=== PATIENT | male | born 1935 | race Caucasian/White ===

== ENCOUNTER 2017-03-10 15:15 | Inpatient (IN) ==
[2017-03-10] MEDS ORDERED: ACETAMINOPHEN 325 MG TABLET PO PRN (15:26)
[2017-03-10] MEDS ORDERED: NALOXONE 0.4 MG/ML VIAL IV PRN (15:26)
[2017-03-10] MEDS ORDERED: ONDANSETRON 4 MG/2 ML VIAL IV PRN (15:26)
[2017-03-10] MEDS ORDERED: SODIUM CHLORIDE 0.9% 250 ML IV PRN (15:34)
--- NOTE | 2017-03-10 16:20 | CT Report ---
CT chest PE study Indication: Acute dyspnea with hypertension. Lung cancer. CT CHEST WITH CONTRAST, PE PROTOCOL DLP: 324 mGy*cm. One or more of the following dose reduction techniques was used: Automated exposure control, adjustment of the mA and/or kV according the patient size, or use of iterative reconstruction techniques. Comparison: 03/06/2017 Technique: Axial CT images of the chest were obtained during the pulmonary arterial phase of contrast injection. Coronal reconstructions were provided. Omnipaque 350, 80 cc. Findings: No pulmonary artery filling defects to the segmental level. Main pulmonary artery is normal in size. Heart size is normal. Pectus excavatum again shown. Shotty mediastinal lymphadenopathy is unchanged from 4 days ago. Pulmonary emphysema, pleural parenchymal scarring of the pulmonary apices, and a oval-shaped dominant mass the left upper lobe measuring 48 x 22 mm are unchanged from 4 days ago. No new lesions shown. No pneumothorax or pleural fluid. Upper abdomen appears grossly benign. Impression: No evidence pulmonary embolus. No change from 4 days ago. PROCEDURE INTERPRETED AT [facility] DEPARTMENT OF RADIOLOGY Final Report Signed by: Jake Tran M.D.
[2017-03-10 16:37] LABS: Basophils % 0.7 % (0.0-0.8); Eosinophils # 0.3 10*3/uL (0.0-0.87); Eosinophils % 5.2 % (0.00-10.9); Hematocrit 31.5 VOL% (42.0-52.0); Hemoglobin 9.5 GM/DL (14.0-18.0); Immature Granulocytes % 0.2 %; Immature Granulocytes Absolute 0.01 #; Lymphocytes # 0.9 10*3/uL (1.4-4.0); Lymphocytes % 15.3 % (21.2-54.2); Mean Corpuscular HGB Conc 30.2 GM/DL (32-36); Mean Corpuscular Hemoglobin 24 PG (27-34); Mean Corpuscular Volume 78.9 FL (87-102); Mean Platelet Volume 10.9 FL (9.6-12.0); Monocytes # 0.5 10*3/uL (0.11-0.8); Monocytes % 8.1 % (1.7-12.7); Neutrophils # 4.1 10*3/uL (1.4-7.4); Neutrophils % 70.5 % (38.7-73.9); Platelet Count 215 T/CUMM (130-400); Red Blood Count 3.99 MC/CUMM (3.8-5.5); Red Cell Distribution Width 19.2 % (9.3-17.3); White Blood Count 5.8 T/CUMM (4-12)
[2017-03-10 16:51] LABS: PT Patient Result 10.8 SECS; Partial Thromboplastin Time 23.1 SECS (0-40)
[2017-03-10] MEDS: SODIUM CHLORIDE 0.9% 1,000 ML IV SCH (16:58)
[2017-03-10 17:00] LABS: Alanine Aminotransferase 18 U/L (16-61); Albumin 3.5 G/DL (3.4-5.0); Alkaline Phosphatase 54 U/L (45-117); Aspartate Amino Transferase 10 U/L (0-37); Bilirubin,Total < 0.39 MG/DL (0.2-1.0); Blood Urea Nitrogen 19 MG/DL (7-18); Calcium 8.3 MG/DL (8.5-10.1); Glucose 89 MG/DL (74-106); Osmolality,Calculated 277.5 MOS/KG (273-304); Potassium 4.4 MMOL/L (3.5-5.1); Sodium 139 MMOL/L (136-145); Total Protein 6.3 G/DL (6.4-8.3)
[2017-03-10 17:01] LABS: Troponin I Only < 0.015 NG/ML (0.00-0.045)
[2017-03-10 19:43] LABS: Troponin I Only < 0.015 NG/ML (0.00-0.045)
[2017-03-10 20:46] LABS: Apearance,Urine CLEAR (Clear); Bilirubin,Urine Negative (Negative); Blood, Urine Negative (Negative); Glucose,Urine (UA) Negative (Negative); Ketones,Urine Negative (Negative); Nitrite,Urine Negative (Negative); Protein,Urine Negative; Renal Epithelial Cells,Urine Occasional /HPF (<1); Urine Color Straw (Yellow); Urine Specific Gravity 1.031 (1.001-1.035); Urine Urobilinogen < 2.0 EU/DL (0.2-1.0); WBC,Urine <1 /HPF (0-6)
[2017-03-10] MEDS: DOCUSATE SODIUM 100 MG CAPSULE PO SCH (22:31)
[2017-03-11] MEDS: SODIUM CHLORIDE 0.9% 1,000 ML IV SCH ×4 (00:35→18:20)
[2017-03-11] MEDS: PANTOPRAZOLE 40 MG VIAL IV SCH ×3 (00:54→22:13)
[2017-03-11 01:47] LABS: Troponin I Only < 0.015 NG/ML (0.00-0.045)
[2017-03-11 05:32] LABS: Hematocrit 36.8 VOL% (42.0-52.0); Hemoglobin 11.7 GM/DL (14.0-18.0)
--- NOTE | 2017-03-11 07:48 | Family Practice History&Phys ---
Assessment and Plan (1) Hypotension Status: Acute Assessment and plan: 03/11/2017: Patient certainly improved with IV fluids. No evidence of PE on CT chest Current Visit: Yes (2) History of melena Status: Acute Assessment and plan: 03/11/2017: GI has been consulted. Current Visit: Yes History of Present Illness Chief complaint: Severe weakness and hypotension History of present illness: Mr. Elam is a 81 year old male Patient's 81-year-old white male has lung cancer and had recent GI bleed. Patient received blood recently. Patient presented to the office complaining of increasing weakness and hypotension. Patient was fearful that he might pass out and had a great deal of difficulty with activities of daily living. Patient is followed by Dr. Hernandez for his lung cancer. Patient also has history of recent DVT and his Xarelto was held due to intraocular hemorrhage and GI bleed. Patient was understandably anxious about his profound weakness and I admitted him. CT scan of the chest was performed on admission was revealed no evidence of PE. Home Medications Medication Instructions Recorded Confirmed Type Aspirin [Ecotrin] 81 mg PO DAILY 05/29/16 03/10/17 History Atorvastatin [Lipitor] 20 mg PO BEDTIME 05/29/16 03/10/17 History Esomeprazole Magnesium [Nexium] 40 mg PO BID 05/29/16 03/10/17 History Tamsulosin [Flomax] 0.4 mg PO DAILY 06/02/16 03/10/17 History Calcium Carbonate Chew [Tums] 4 tablet PO Q4H PRN 09/03/16 03/10/17 History Mv-Min/FA/Vit K/Lycop/Lut/Zeax 1 each PO DAILY 09/03/16 03/10/17 History [Ocuvite Eye + Multi Tablet] Ondansetron HCl 8 mg PO Q6H 09/03/16 03/10/17 History Sennosides/Docusate Sodium 1 each PO DAILY 09/03/16 03/10/17 History [Rosetta-Colace Tablet] Oxycodone HCl/Acetaminophen 1 each PO Q6HR PRN #100 tablet 09/04/16 03/10/17 Rx [Percocet 10-325 mg Tablet] Polyethylene Glycol Powder 17 gm PO DAILY 09/04/16 03/10/17 History [Miralax] Rivaroxaban [Xarelto] 20 mg PO DAILY W/BREAKFAST 03/10/17 03/10/17 History fentaNYL 25 MCG/HR PATCH 1 patch TRANSDERM Q3DAY 03/10/17 03/10/17 History [Duragesic 25 Patch] Allergies Allergy/AdvReac Type Severity Reaction Status Date / Time meperidine [From Demerol] Allergy RASH Verified 09/03/16 09:06 Oxycodone [From Tylox] Allergy RASH Verified 09/03/16 09:06 - Constitutional Constitutional: Present: fatigue, lethargy, malaise, weakness - EENT Eyes: Absent: blurry vision, loss of vision Ears: Absent: decreased hearing, ear pain Nose, mouth and throat: Absent: nasal congestion, sinus pressure, sore throat - Cardiovascular Cardiovascular: Present: dyspnea on exertion. Absent: dyspnea, orthopnea, palpitations, PND - Respiratory Respiratory: Present: dyspnea on exertion. Absent: cough, wheezing - Gastrointestinal Gastrointestinal: Present: melena. Absent: abdominal pain, diarrhea, hematemesis, hematochezia, nausea, vomiting - Genitourinary Genitourinary: Absent: dysuria, urinary frequency, urinary incontinence - Musculoskeletal Musculoskeletal: Absent: arthralgias, back pain - Neurological Neurological: Absent: abnormal gait, focal weakness, numbness, paresthesias - Psychiatric Psychiatric: Absent: confusion, depression - Endocrine Endocrine: Present: fatigue. Absent: polydipsia, polyphagia - Hematologic/Lymphatic Hematologic/Lymphatic: Absent: easy bleeding, easy bruising Medical,Surgical,& Family Hx - Medical History Cardio: History of: Hypertension HEENT: History of: Eye Problem (MACULAR DEGENERATION) Endocrine: History of: Dyslipidemia Respiratory: History of: Lung Cancer, Respiratory Problems (lung ca stage 4) Genitourinary: History of: Prostate Problems (prostate ca) Gastrointestinal: History of: GERD, GI Problems (2/3 stomch removed ulcer ruptured) Musculoskeletal: History of: Herniated Disk, Musculoskeletal Problems (ca mest to t4) Other: History of: Cancer (STAGE IV LUNG, MULTIPLE SKIN CANCERS) - Surgical History Abdominal Surgeries: Surgical HX of: Abdominal Surgery, Hernia Repair - Family History Family History: Reports;: Family Cancer, Family Heart Disease, Family Hypertension - Social History Smoking Status: Former smoker Frequency of Alcohol Use: None Type of Drug Use: None Exam - Constitutional Vitals: Period Temp Pulse Resp BP Sys/Nicole Pulse Ox Last 24 Hr 97.2 F-98.6 F 63-72 18-20 122-173/61-89 96-100 Exam: General: Objective patient is a well-developed white male in no acute distress. He is able to give good history. HEENT: Pupils equal and reactive to light. Patent nares and airway Neck: No meningismus, adenopathy, thyromegaly. There are no auscultated carotid bruits. Cardiovascular: Regular rhythm. No murmurs or gallops Chest: Clear to auscultation without rales rhonchi wheezes. Abdomen: Soft nontender to palpation No masses, rebound, guarding or tenderness. Neuro: Cranial nerves intact and DTRs and strength symmetric in all extremities. Dermatologic: No evidence of abnormal lesions or masses. Musculoskeletal: There is no joint swelling or tenderness or deformity. Results - Labs CBC & BMP: 03/11/17 05:15 03/10/17 16:29 Lab Results: I have reviewed the past 24 hour labs
--- NOTE | 2017-03-11 08:15 | Oncology Consult Note ---
Assessment and Plan (1) Lung cancer Status: Acute Assessment and plan: I agree with upper endoscopy today to evaluate for the source of his recent likely upper GI bleed. Given his hemorrhagic retinal issues and his recent GI bleed, I feel like we should continue holding all anticoagulation including aspirin. I will repeat ultrasound of his left lower extremity today to reevaluate his previously known DVT. I do not see a real benefit in placing an IVC filter. I will check back in with him tomorrow. Current Visit: No (2) DVT (deep venous thrombosis) Status: Acute Current Visit: Yes (3) History of melena Status: Acute Current Visit: Yes History of Present Illness History of present illness: Mr. Elam is a 81 year old male with metastatic lung cancer who is being treated with Keytruda for palliative management who recently developed an upper GI bleed last week and required 2 units of blood. His melena resolved within 2 days and we are trying to get him set up to see GI for an upper scope. He presented to his primary care's office yesterday complaining of worsening fatigue and shortness of breath. He was admitted for further evaluation. CT PE protocol yesterday showed stable lung and bony findings from a cancer standpoint. Did not show any pulmonary emboli. He was transfused 2 more units of blood yesterday and this morning his hemoglobin is over 11. He states he feels much better today. GI seeing him and plans to do an upper endoscopy later today. We discontinued Xarelto 2 months ago that we were using to treat a lower extremity DVT in the left leg. He was developing hemorrhagic findings in his left retina that we thought was secondary to the Xarelto. His recent imaging showed stable findings from a cancer standpoint but his prognosis is still measured in months. Home Medications Medication Instructions Recorded Confirmed Type Aspirin [Ecotrin] 81 mg PO DAILY 05/29/16 03/10/17 History Atorvastatin [Lipitor] 20 mg PO BEDTIME 05/29/16 03/10/17 History Esomeprazole Magnesium [Nexium] 40 mg PO BID 05/29/16 03/10/17 History Tamsulosin [Flomax] 0.4 mg PO DAILY 06/02/16 03/10/17 History Calcium Carbonate Chew [Tums] 4 tablet PO Q4H PRN 09/03/16 03/10/17 History Mv-Min/FA/Vit K/Lycop/Lut/Zeax 1 each PO DAILY 09/03/16 03/10/17 History [Ocuvite Eye + Multi Tablet] Ondansetron HCl 8 mg PO Q6H 09/03/16 03/10/17 History Sennosides/Docusate Sodium 1 each PO DAILY 09/03/16 03/10/17 History [Rosetta-Colace Tablet] Oxycodone HCl/Acetaminophen 1 each PO Q6HR PRN #100 tablet 09/04/16 03/10/17 Rx [Percocet 10-325 mg Tablet] Polyethylene Glycol Powder 17 gm PO DAILY 09/04/16 03/10/17 History [Miralax] Rivaroxaban [Xarelto] 20 mg PO DAILY W/BREAKFAST 03/10/17 03/10/17 History fentaNYL 25 MCG/HR PATCH 1 patch TRANSDERM Q3DAY 03/10/17 03/10/17 History [Duragesic 25 Patch] Allergies Allergy/AdvReac Type Severity Reaction Status Date / Time meperidine [From Demerol] Allergy RASH Verified 09/03/16 09:06 Oxycodone [From Tylox] Allergy RASH Verified 09/03/16 09:06 Medical,Surgical,& Family Hx - Medical History Cardio: History of: Hypertension HEENT: History of: Eye Problem (MACULAR DEGENERATION) Endocrine: History of: Dyslipidemia Respiratory: History of: Lung Cancer, Respiratory Problems (lung ca stage 4) Genitourinary: History of: Prostate Problems (prostate ca) Gastrointestinal: History of: GERD, GI Problems (2/3 stomch removed ulcer ruptured) Musculoskeletal: History of: Herniated Disk, Musculoskeletal Problems (ca mest to t4) Other: History of: Cancer (STAGE IV LUNG, MULTIPLE SKIN CANCERS) - Surgical History Abdominal Surgeries: Surgical HX of: Abdominal Surgery, Hernia Repair - Family History Family History: Reports;: Family Cancer, Family Heart Disease, Family Hypertension - Social History Smoking Status: Former smoker Frequency of Alcohol Use: None Type of Drug Use: None 12 point system: reviewed and no additional remarkable complaints except as stated - Constitutional Constitutional: Present: fatigue - EENT Nose, mouth and throat: Present: dizziness Exam - Constitutional Vitals: Period Temp Pulse Resp BP Sys/Nicole Pulse Ox Last 24 Hr 97.2 F-98.6 F 63-72 18-20 122-173/61-89 95-100 General appearance: normal weight, no acute distress - Head Head Exam: Present: normocephalic, atraumatic - Eye Eye Exam: Present: EOMI Pupils: Present: PERRL - ENT ENT exam: Present: normal exam, normal oropharynx - Neck Neck exam: Absent: lymphadenopathy, thyromegaly - Respiratory Respiratory exam: Present: CTAB. Absent: wheezes - Cardiovascular Cardiovascular exam: Present: RRR. Absent: JVD, systolic murmur - GI/Abdominal GI/Abdominal exam: Present: soft. Absent: ascites, distended, mass - Neurological Exam Neurological exam: Present: alert, oriented X3 - Psychiatric Psychiatric exam: Present: normal affect, normal mood - Skin Skin exam: Present: warm, dry Results - Labs CBC & BMP: 03/11/17 05:15 03/10/17 16:29 Lab Results: I have reviewed the past 24 hour labs - Diagnostic Findings Procedure: CT - chest: report reviewed by me
[2017-03-11] MEDS: DOCUSATE SODIUM 100 MG CAPSULE PO SCH ×2 (08:30→22:13)
[2017-03-11] MEDS: TAMSULOSIN 0.4 MG CAPSULE PO SCH (08:30)
--- NOTE | 2017-03-11 09:19 | Ultrasound Report ---
US venous doppler LE LT Indication: Known DVT in left lower extremity. Comparison: Left lower extremity venous Doppler dated January 28, 2017. Technique: Grayscale, spectral, and color Doppler interrogation of the left lower extremity veins was performed. Augmentation and compression was performed. Findings: Grayscale, color Doppler, and pulsed Doppler evaluation of the veins of the left lower extremity demonstrates redemonstration of nonocclusive thrombus within the left popliteal vein. This is similar in appearance to comparison study. IMPRESSION: As above. PROCEDURE INTERPRETED AT [facility] DEPARTMENT OF RADIOLOGY Final Report Signed by: Dr Antonio Burt
[2017-03-11 09:35] LABS: Hematocrit 36.4 VOL% (42.0-52.0); Hemoglobin 11.6 GM/DL (14.0-18.0)
--- NOTE | 2017-03-11 11:02 | Gastrointestinal Consult Note ---
<Mee Curiel - Last Filed: 03/11/17 10:51> Assessment and Plan (1) Melena Status: Acute Assessment and plan: 03/11-2 week history of melena, anemia with mild epigastric pain. 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 No NSAID use. Pallative chemotherapy for metastatic lung cancer. Plan for EGD today to further evaluate. Plan and addendum to follow by DR Wiseman. Current Visit: Yes History of Present Illness Chief complaint: Melena, weakness History of present illness: Mr. Elam is a 81 year old male who presented to the hospital with onset of weakness and hypotension. Pt is a fair historian however is at bedside and assist in history taking. Pt states he has not felt well the last several days with increased fatigue and weakness. Statse that he presented to his PCP for further evaluation and was direct admitted to the hospital for further workup. He has a history of metastatic lung cancer for pallative management and is being treated with Keytruda by Dr Hernandez. He had onset of melena approximately two weeks ago and received 2 units of PRBC in clinic and set up for EGD as outpatient later this week with Dr Wiseman. Pt states that the melena returned this week and the weakness/fatigue increased as well. He has been on Xarelto in the past for DVT however this was stopped two months ago due to intraoccular bleed. He states that he has a history of PUD in the past with perforation requiring surgery in the 1949s and then returned in 1976 to have partial gastrectomy with Billroth II anatomy noted in facility records. Pt states he has not had reoccurrence of ulcers since this time. He does complain of some mild dysphagia to pills at times. Denies any nausea or vomiting. He states he has noted some mild epigastric discomfort with meals as of recent. On admission , his hemoglobin was noted at 9.5 and received two more units of PRBC, with hgb now at 11.7. He has had his most recent endoscopy done at [facility] by Dr Wiseman, however unable to access these records. Last known endoscopy here noted with Dr Cerna in 2008 with findings of esophagitis. Home Medications Medication Instructions Recorded Confirmed Type Aspirin [Ecotrin] 81 mg PO DAILY 05/29/16 03/10/17 History Atorvastatin [Lipitor] 20 mg PO BEDTIME 05/29/16 03/10/17 History Esomeprazole Magnesium [Nexium] 40 mg PO BID 05/29/16 03/10/17 History Tamsulosin [Flomax] 0.4 mg PO DAILY 06/02/16 03/10/17 History Calcium Carbonate Chew [Tums] 4 tablet PO Q4H PRN 09/03/16 03/10/17 History Mv-Min/FA/Vit K/Lycop/Lut/Zeax 1 each PO DAILY 09/03/16 03/10/17 History [Ocuvite Eye + Multi Tablet] Ondansetron HCl 8 mg PO Q6H 09/03/16 03/10/17 History Sennosides/Docusate Sodium 1 each PO DAILY 09/03/16 03/10/17 History [Rosetta-Colace Tablet] Oxycodone HCl/Acetaminophen 1 each PO Q6HR PRN #100 tablet 09/04/16 03/10/17 Rx [Percocet 10-325 mg Tablet] Polyethylene Glycol Powder 17 gm PO DAILY 09/04/16 03/10/17 History [Miralax] Rivaroxaban [Xarelto] 20 mg PO DAILY W/BREAKFAST 03/10/17 03/10/17 History fentaNYL 25 MCG/HR PATCH 1 patch TRANSDERM Q3DAY 03/10/17 03/10/17 History [Duragesic 25 Patch] Allergies Allergy/AdvReac Type Severity Reaction Status Date / Time meperidine [From Demerol] Allergy RASH Verified 09/03/16 09:06 Oxycodone [From Tylox] Allergy RASH Verified 09/03/16 09:06 Medical,Surgical,& Family Hx - Medical History Cardio: History of: Hypertension HEENT: History of: Eye Problem (MACULAR DEGENERATION) Endocrine: History of: Dyslipidemia Respiratory: History of: Lung Cancer, Respiratory Problems (lung ca stage 4) Genitourinary: History of: Prostate Problems (prostate ca) Gastrointestinal: History of: GERD, GI Problems (2/3 stomch removed ulcer ruptured) Musculoskeletal: History of: Herniated Disk, Musculoskeletal Problems (ca mest to t4) Other: History of: Cancer (STAGE IV LUNG, MULTIPLE SKIN CANCERS) - Surgical History Abdominal Surgeries: Surgical HX of: Abdominal Surgery, Hernia Repair - Family History Family History: Reports;: Family Cancer, Family Heart Disease, Family Hypertension - Social History Smoking Status: Former smoker Frequency of Alcohol Use: None Type of Drug Use: None 12 point system: reviewed and no additional remarkable complaints except as stated - Constitutional Constitutional: Present: as per HPI, fatigue, weakness - EENT Eyes: Present: as per HPI Ears: Present: as per HPI Nose, mouth and throat: Present: as per HPI - Cardiovascular Cardiovascular: Present: as per HPI - Respiratory Respiratory: Present: as per HPI - Gastrointestinal Gastrointestinal: Present: as per HPI, melena - Genitourinary Genitourinary: Present: as per HPI - Musculoskeletal Musculoskeletal: Present: as per HPI - Neurological Neurological: Present: as per HPI - Psychiatric Psychiatric: Present: as per HPI - Endocrine Endocrine: Present: as per HPI - Hematologic/Lymphatic Hematologic/Lymphatic: Present: as per HPI Exam - Constitutional Vitals: Period Temp Pulse Resp BP Sys/Nicole Pulse Ox Last 24 Hr 97.2 F-98.6 F 63-72 18-20 122-173/61-89 95-100 General appearance: normal weight, no acute distress - Head Head exam: Present: normal inspection, normocephalic - Eye Eye exam: Present: other (lids and conjunctiva unremarkable). Absent: scleral icterus - ENT ENT exam: Present: normal exam, normal oropharynx - Neck Neck exam: Present: normal inspection - Respiratory Respiratory exam: Present: clear to auscultation bilaterally. Absent: rales, rhonchi, wheezes - Cardiovascular Cardiovascular exam: Present: regular rate and rhythm. Absent: diastolic murmur , JVD, systolic murmur - GI/Abdominal GI/Abdominal exam: Present: normal bowel sounds, soft. Absent: ascites, distended, mass, organomegaly, tenderness - Extremities Exam Extremities exam: Present: normal inspection, full ROM - Back Exam Back exam: Present: normal inspection - Neurological Exam Neurological exam: Present: alert, oriented X3 - Psychiatric Psychiatric exam: Present: normal affect, normal mood - Skin Skin exam: Present: normal color, warm, dry Results - Labs CBC & BMP: 03/11/17 09:29 03/10/17 16:29 Lab Results: I have reviewed the past 24 hour labs <Alfred Wiseman - Last Filed: 03/11/17 11:41> History of Present Illness History of present illness: Mr. Elam is a 81 year old male Exam - Constitutional Vitals: Period Temp Pulse Resp BP Sys/Nicole Pulse Ox Last 24 Hr 97.2 F-98.6 F 61-72 18-20 122-173/61-89 95-100 Results - Labs CBC & BMP: 03/11/17 09:29 03/10/17 16:29
--- NOTE | 2017-03-11 11:46 | Operative Note ---
Date of procedure: 03/11/17 Pre-op diagnosis: Melena with possible GI bleed Procedure: EGD 81-year-old gentleman admitted with melena decreasing hematocrit prior. Peptic ulcer disease history with epigastric pain now for EGD to further evaluate. Informed consent was obtained the patient He was sedated with MAC anesthesia per anesthesia protocol. Patient was placed in the left lateral decubitus position the Olympus flexible video upper endoscope was inserted into the oral cavity under direct vision the esophagus was intubated. Findings: Esophagus-normal proximal mid esophageal mucosa distal esophagus with small hiatal hernia no significant esophagitis stricture or Mccurdy's or varices were seen. Stomach-normal insufflation large amount of bubbles and retained secretions but no bloodstained mucosa or blood is seen. He has had a previous partial gastrectomy with intact gastrojejunal anastomosis with what appears to be a Raza -en-Y limb. There are significant secretions limiting visibility. Again no bloodstained mucosa or active bleeding is noted for approximately 30 cm into the jejunum. No AVMs were seen. The procedure terminated placed our procedure well his discharge recovery in good condition. Postop diagnosis 1. Status post partial gastrectomy with no evidence of gastric outlet obstruction no obvious source of blood loss identified 2. Gastroesophageal reflux disease-continue antireflux precautions and antacids as needed. 3. Continue to monitor H&H. If bleeding episodes persist consideration of GI bleeding scan may prove useful for localization purposes. Anesthesia: MAC Surgeon / Physician: Alfred Wiseman Estimated blood loss: none Specimens: none sent Condition: stable Disposition: post procedure unit Results - Labs CBC & BMP: 03/11/17 09:29 03/10/17 16:29 Discharge Plan - Discharge Medications No Action Esomeprazole Magnesium [Nexium] 40 mg PO BID Atorvastatin [Lipitor] 20 mg PO BEDTIME Aspirin [Ecotrin] 81 mg PO DAILY Tamsulosin [Flomax] 0.4 mg PO DAILY Calcium Carbonate Chew [Tums] 4 tablet PO Q4H PRN PRN Reason: Heartburn Oxycodone HCl/Acetaminophen [Percocet 10-325 mg Tablet] 1 each PO Q6HR PRN # 100 tablet PRN Reason: Pain Polyethylene Glycol Powder [Miralax] 17 gm PO DAILY Sennosides/Docusate Sodium [Rosetta-Colace Tablet] 1 each PO DAILY Mv-Min/FA/Vit K/Lycop/Lut/Zeax [Ocuvite Eye + Multi Tablet] 1 each PO DAILY Ondansetron HCl 8 mg PO Q6H Rivaroxaban [Xarelto] 20 mg PO DAILY W/BREAKFAST fentaNYL 25 MCG/HR PATCH [Duragesic 25 Patch] 1 patch TRANSDERM Q3DAY - Follow Up or Referral - Forms/Instructions
--- NOTE | 2017-03-11 11:48 | Anesthesia Post-Op ---
Anesthesia Post OP - Post Ansesthetic Evaluation Patient seen in post op: Yes Resp: within normal limits CV: within normal limits Mental: within normal limits Temp: within normal limits [id number]: within normal limits Nausea and Vomiting: within normal limits Pain: within normal limits
[2017-03-11] MEDS ORDERED: PROPOFOL 200 MG/20 ML VIAL IV ONE (12:00)
[2017-03-11] MEDS ORDERED: ONDANSETRON 4 MG/2 ML VIAL ONE (12:00)
[2017-03-11] MEDS: oxyCODONE/ACETAMINOPHEN 5-325 MG TABLET PO PRN (12:35)
[2017-03-11] MEDS: POLYETHYLENE GLYCOL POWDER 17 GM PACK PO SCH (13:59)
[2017-03-12] MEDS: SODIUM CHLORIDE 0.9% 1,000 ML IV SCH ×2 (07:30→17:10)
--- NOTE | 2017-03-12 07:57 | Family Practice Progress Note ---
Family Practice - PN: Subj Interval history: Patient had a good night has not had any further bleeding. His EGD showed no evidence of source of his bleeding. Dr. Wiesman suggested to him having a bleeding scan of his bleeding returns obviously that is not present at this time. Seen with Dr. Hernandez yesterday who recommended no further anticoagulation. Patient still anxious about his DVT which is still present. Exam (Progress Note) - Constitutional Vitals: Period Temp Pulse Resp BP Sys/Nicole Pulse Ox Last 24 Hr 97.1 F-98.5 F 60-74 10-20 101-161/66-051 95-100 Exam: Objectively well-developed white male no acute distress. His color is good and his hematocrit is 36% this morning. Is not confused and is able answer all questions appropriately. Cardiovascular: Heart rates regular without murmurs or gallops. Respiratory: Lungs clear to auscultation bilaterally. Abdomen: Abdomen soft and nontender to palpation. Results - Labs CBC & BMP: 03/11/17 09:29 03/10/17 16:29 Lab Results: I have reviewed the past 24 hour labs Assessment and Plan (1) Hypotension Status: Acute Assessment and plan: 03/11/2017: Patient certainly improved with IV fluids. No evidence of PE on CT chest 03/12/2017: No evidence of PE on the CT chest. Patient's blood pressure is improved with IV fluids. Current Visit: Yes (2) History of melena Status: Acute Assessment and plan: 03/11/2017: GI has been consulted. 03/12/2017: Patient had a negative EGD. His stool was negative for blood. Current Visit: Yes (3) DVT (deep venous thrombosis) Status: Acute Assessment and plan: 03/12/2017: Anticoagulation was not recommended at this time. Current Visit: Yes
[2017-03-12] MEDS: DOCUSATE SODIUM 100 MG CAPSULE PO SCH ×2 (09:22→20:41)
[2017-03-12] MEDS: TAMSULOSIN 0.4 MG CAPSULE PO SCH (09:22)
[2017-03-12] MEDS: POLYETHYLENE GLYCOL POWDER 17 GM PACK PO SCH (09:23)
[2017-03-12] MEDS: PANTOPRAZOLE 40 MG VIAL IV SCH ×2 (09:23→20:41)
--- NOTE | 2017-03-12 10:34 | Gastrointestinal Progress Note ---
<Mee Curiel - Last Filed: 03/12/17 10:31> Assessment and Plan (1) Melena Status: Acute Assessment and plan: 03/12-no reports of overt bleeding. Hemoglobin stable 11.6. With no repeat labs today. EGD findings and yesterday noted. Anticoagulation continues to be held. LLE ultrasound findings noted. Plan an addendum to follow by Dr. Wiseman. 03/11-2 week history of melena, anemia with mild epigastric pain. 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 No NSAID use. Pallative chemotherapy for metastatic lung cancer. Plan for EGD today to further evaluate. Plan and addendum to follow by DR Wiseman. Current Visit: Yes Gastroenterology - PN: Subj Interval history: CC: Melena Patient is seen awake alert sitting up in chair, at bedside. States he had an uneventful night. Patient's is concerned because he is having continued fatigue and low energy levels. His hemoglobin was checked and is holding stable at 11.6 following his 2 units of packed red blood cells on yesterday. Denies any abdominal pain, nausea or vomiting. EGD on yesterday without any acute findings including no gastric outlet obstruction however findings of GERD. He had a bowel movement on yesterday with no overt bleeding reported. Dr. العراقي is following patient at this time and is noted to recommend to continue to hold his anticoagulation at this time. Patient had repeat Doppler of his left lower extremity with findings of nonocclusive thrombus in the left popliteal vein. Patient is very anxious about his anticoagulant being held due to this finding. Abdomen soft, nontender. ROS: Denies shortness of breath or chest pain Exam (Progress Note) - Constitutional Vitals: Period Temp Pulse Resp BP Sys/Nicole Pulse Ox Last 24 Hr 97.1 F-98.5 F 60-74 10-18 101-161/66-051 96-100 General appearance: normal weight, no acute distress - Head Head exam: Present: normal inspection, normocephalic - Eye Eye exam: Present: other (Lids and conjunctivae unremarkable). Absent: scleral icterus - ENT ENT exam: Present: normal exam, normal oropharynx - Neck Neck exam: Present: normal inspection - Respiratory Respiratory exam: Present: clear to auscultation bilaterally. Absent: rales, rhonchi, wheezes - Cardiovascular Cardiovascular exam: Present: regular rate and rhythm. Absent: diastolic murmur , JVD, systolic murmur - GI/Abdominal GI/Abdominal exam: Present: normal bowel sounds, soft. Absent: ascites, distended, mass, organomegaly, tenderness - Extremities Exam Extremities exam: Present: normal inspection, full ROM - Back Exam Back exam: Present: normal inspection - Neurological Exam Neurological exam: Present: alert, oriented X3 - Psychiatric Psychiatric exam: Present: normal affect, normal mood - Skin Skin exam: Present: normal color, warm, dry Results - Labs CBC & BMP: 03/11/17 09:29 03/10/17 16:29 Lab Results: I have reviewed the past 24 hour labs <Alfred Wiseman - Last Filed: 03/12/17 17:19> Exam (Progress Note) - Constitutional Vitals: Period Temp Pulse Resp BP Sys/Nicole Pulse Ox Last 24 Hr 97.1 F-98.5 F 60-64 16-18 132-147/71-86 95-99 Results - Labs CBC & BMP: 03/12/17 10:51 03/10/17 16:29
[2017-03-12 11:29] LABS: Hematocrit 38.5 VOL% (42.0-52.0); Hemoglobin 12.2 GM/DL (14.0-18.0)
[2017-03-12] MEDS: oxyCODONE/ACETAMINOPHEN 5-325 MG TABLET PO PRN ×2 (13:18→20:41)
[2017-03-13] MEDS: SODIUM CHLORIDE 0.9% 1,000 ML IV SCH ×2 (01:15→09:14)
[2017-03-13 05:51] LABS: Basophils # 0.1 10*3/uL (0.0-0.2); Basophils % 0.9 % (0.0-0.8); Eosinophils # 0.3 10*3/uL (0.0-0.87); Eosinophils % 5.4 % (0.00-10.9); Hematocrit 35.5 VOL% (42.0-52.0); Hemoglobin 11.2 GM/DL (14.0-18.0); Immature Granulocytes % 0.4 %; Immature Granulocytes Absolute 0.02 #; Lymphocytes # 0.7 10*3/uL (1.4-4.0); Lymphocytes % 13.9 % (21.2-54.2); Mean Corpuscular HGB Conc 31.5 GM/DL (32-36); Mean Corpuscular Hemoglobin 25 PG (27-34); Mean Corpuscular Volume 79.6 FL (87-102); Mean Platelet Volume 10.8 FL (9.6-12.0); Monocytes # 0.5 10*3/uL (0.11-0.8); Monocytes % 9.8 % (1.7-12.7); Neutrophils # 3.7 10*3/uL (1.4-7.4); Neutrophils % 69.6 % (38.7-73.9); Platelet Count 184 T/CUMM (130-400); Red Blood Count 4.46 MC/CUMM (3.8-5.5); Red Cell Distribution Width 18.6 % (9.3-17.3); White Blood Count 5.3 T/CUMM (4-12)
[2017-03-13 06:11] LABS: Osmolality,Calculated 284.1 MOS/KG (273-304); Potassium 4.2 MMOL/L (3.5-5.1)
--- NOTE | 2017-03-13 07:49 | Discharge Summary ---
Hospital Course - Hospital Course Hospital Course: Patient 81-year-old white male presented the office on day of admission with increasing weakness and hypotension. Patient did have a recent history of GI bleed requiring transfusion. Patient also has a history of lung CA and has been on chemotherapy. A month ago was diagnosed with DVT and placed on Xarelto. He developed retinal hemorrhage in his left eye as well as previously mentioned GI bleed. Patient seen in consultation by Dr. Hernandez who did not think he was a candidate for any further anticoagulation at this point. Repeat venous Doppler showed organized clot in his left popliteal vein. Patient denies any chest pain or shortness of breath. A CT of the chest had been performed that showed no evidence of DVT. Patient had no further bleeding while hospitalized and had a upper endoscopy that revealed no evidence of a bleeding site. Patient's hematocrit remained stable while hospitalized will be discharged home today. Diagnosis - Discharge Diagnosis (1) Hypotension Status: Acute (2) History of melena Status: Acute (3) DVT (deep venous thrombosis) Status: Acute Discharge Plan - Discharge Data Disposition: Disch To Home/Self Care Condition at Discharge: Stable Discharge Diet: advance to your usual diet Activity: resume usual activities as tolerated Hygiene: no restrictions Weight Bearing at Discharge: full weight bearing Driving: no restrictions Contact your physician if you experience:: fever over 101 - Discharge Medications New Acetaminophen Tab [Tylenol Tab] 650 mg PO Q6H PRN tablet PRN Reason: Fever > 100.4 Or Headache Continue Esomeprazole Magnesium [Nexium] 40 mg PO BID Tamsulosin [Flomax] 0.4 mg PO DAILY Calcium Carbonate Chew [Tums] 4 tablet PO Q4H PRN PRN Reason: Heartburn Oxycodone HCl/Acetaminophen [Percocet 10-325 mg Tablet] 1 each PO Q6HR PRN # 100 tablet PRN Reason: Pain Polyethylene Glycol Powder [Miralax] 17 gm PO DAILY Sennosides/Docusate Sodium [Rosetta-Colace Tablet] 1 each PO DAILY Mv-Min/FA/Vit K/Lycop/Lut/Zeax [Ocuvite Eye + Multi Tablet] 1 each PO DAILY Ondansetron HCl 8 mg PO Q6H fentaNYL 25 MCG/HR PATCH [Duragesic 25 Patch] 1 patch TRANSDERM Q3DAY Discontinued Atorvastatin [Lipitor] 20 mg PO BEDTIME Aspirin [Ecotrin] 81 mg PO DAILY Rivaroxaban [Xarelto] 20 mg PO DAILY W/BREAKFAST - Follow Up or Referral Follow Up: Alphonse Will MD [Physician] - 1 Month - Forms/Instructions Exam - Constitutional Vitals: Period Temp Pulse Resp BP Sys/Nicole Pulse Ox Last 24 Hr 97.8 F-98.1 F 61-67 16-18 123-155/70-73 92-98 Exam: Objectively well-developed white male no acute distress. His color is good and his hematocrit is 35% this morning. Is not confused and is able answer all questions appropriately. He states he feels up to going home. Cardiovascular: Heart rates regular without murmurs or gallops. Respiratory: Lungs clear to auscultation bilaterally. Abdomen: Abdomen soft and nontender to palpation. Discharge Results Procedures and tests throughout hospitalization: Pending Orders 03/10/17 15:33 Occult Blood, Stool Stat Labs on day of discharge: Labs from last 24 hours 03/13/17 03/13/17 03/12/17 05:31 05:31 10:51 WBC 5.3 RBC 4.46 Hgb 11.2 L 12.2 L Hct 35.5 L 38.5 L MCV 79.6 L MCH 25 L MCHC 31.5 L RDW 18.6 H Plt Count 184 MPV 10.8 Neut % (Auto) 69.6 Lymph % (Auto) 13.9 L Liberty % (Auto) 9.8 Eos % (Auto) 5.4 Baso % (Auto) 0.9 H Neut # (Auto) 3.7 Lymph # (Auto) 0.7 L Liberty # (Auto) 0.5 Eos # (Auto) 0.3 Baso # (Auto) 0.1 Immature Gran % 0.4 Nucleated RBC % 0.0 Immature Gran # 0.02 Nucleated RBCs # 0.00 Sodium 142 Potassium 4.2 Chloride 111 H Carbon Dioxide 24 Anion Gap 11.2 BUN 17 Creatinine 0.70 GFR Calculation 104 BUN/Creatinine Ratio 24.00 H Glucose 104 Calculated Osmolality 284.1 Calcium 8.0 L Hematocrit is stable. DS: Provider Date of admission: 03/12/17 15:24 Primary care physician: Tyrel Hernandez MD Attending physician on admission: Alphonse Will MD Consults: 03/10/17 15:26 Consult to Case Mgmt/Social Srvs [CONS] Routine Reason for Case Mgmt/Social Srvs: Discharge Planning Consult to Physician [CONS] Routine Comment: Consulting Provider: Alfred Wiseman Consult Notification Comment: TEXTED TO AYANA AT 7:25 03/10/17 15:31 Consult to Physician [CONS] Routine Comment: Consulting Provider: Tyrel Hernandez Person Notified: REJI Date Notified: 03/11/17 Time Notified: 09:10 Discharging clinician: Alphonse Will MD Expected date of discharge: 03/13/17
[2017-03-13 08:07] VITALS: BP 147/82
--- NOTE | 2017-03-13 08:42 | Physician Query Form ---
CLICK EDIT DOCUMENT TO SELECT QUERY ANSWER --> OK --> SIGN Joyce Albert RN, CCDS Certified Clinical Subassembler W) [phone] (f) [phone] [email or web address]: Make your selection(s) from the choices in EACH section by typing an "x" and enter comments in the comment section. Please use your independent medical judgment in providing your response. This request does not imply that any particular answer is desired or expected. CLINICAL INDICATORS: (Providers should not edit this section) The medical record indicates that the patient was admitted for anemia, recently "diagnosed with DVT and placed on Xarelto", "he developed retinal hemorrhage in his left eye as well as previously mentioned GI bleed" and "patient seen in consultation by Dr. Hernandez who did not think he was a candidate for any further anticoagulation at this point". Based on the above, could you clarify the appropriate diagnosis, if significant , that supports the above abnormalities and additional evaluation, monitoring, and/or treatment rendered: ( ) Current GI bleed/ Anemia is due to Xarelto ( ) Current GI bleed/ Anemia is not due to Xarelto ( ) Current GI bleed/ Anemia is due to ( ) Other, please specify: (x ) Clinically unable to determine COMMENTS: PLEASE ALSO DOCUMENT RESPONSE IN PROGRESS NOTES AND/OR DISCHARGE SUMMARY Use of terms such as suspected, likely, or probable (associated with a specific diagnosis that is being evaluated, monitored, or treated as if it exists) are acceptable and can be restated in the discharge summary if not ruled out. MTDD
[2017-03-13] MEDS: TAMSULOSIN 0.4 MG CAPSULE PO SCH (09:13)
[2017-03-13] MEDS: PANTOPRAZOLE 40 MG VIAL IV SCH (09:13)
[2017-03-13] MEDS: DOCUSATE SODIUM 100 MG CAPSULE PO SCH (09:13)
[2017-03-13] MEDS: POLYETHYLENE GLYCOL POWDER 17 GM PACK PO SCH (09:13)
== END 2017-03-13 10:00 | disposition home or self-care (01) | DRG 812 ==
LOC: INTOOBSV 15:26 → N.TELEN 15:42
PROVIDERS: ADMIT Family Medicine; ATTEND Family Medicine

== ENCOUNTER 2018-04-16 11:53 | Inpatient (IN) ==
[2018-04-16] MEDS ORDERED: MECLIZINE 25 MG TABLET PO STA (12:18)
[2018-04-16 13:51] LABS: Basophils % 0.5 % (0.0-0.8); Eosinophils # 0.2 10*3/uL (0.0-0.87); Hematocrit 41.8 VOL% (42.0-52.0); Hemoglobin 14.1 GM/DL (14.0-18.0); Immature Granulocytes % 0.5 %; Immature Granulocytes Absolute 0.03 #; Lymphocytes # 0.6 10*3/uL (1.4-4.0); Lymphocytes % 9.3 % (21.2-54.2); Mean Corpuscular HGB Conc 33.7 GM/DL (32-36); Mean Corpuscular Hemoglobin 31 PG (27-34); Mean Corpuscular Volume 92.5 FL (87-102); Mean Platelet Volume 10.1 FL (9.6-12.0); Monocytes # 0.7 10*3/uL (0.11-0.8); Monocytes % 10.7 % (1.7-12.7); Neutrophils # 4.8 10*3/uL (1.4-7.4); Platelet Count 148 T/CUMM (130-400); Red Blood Count 4.52 MC/CUMM (3.8-5.5); Red Cell Distribution Width 14.1 % (9.3-17.3); White Blood Count 6.3 T/CUMM (4-12)
[2018-04-16 14:00] LABS: PT Patient Result 10.1 SECS; Partial Thromboplastin Time 26.5 SECS (0-40)
[2018-04-16 14:14] LABS: Alanine Aminotransferase 18 U/L (16-61); Albumin 2.8 G/DL (3.4-5.0); Alkaline Phosphatase 70 U/L (45-117); Aspartate Amino Transferase 14 U/L (0-37); Blood Urea Nitrogen 25 MG/DL (7-18); Calcium 8.8 MG/DL (8.5-10.1); Glucose 124 MG/DL (74-106); Potassium 4.3 MMOL/L (3.5-5.1); Sodium 143 MMOL/L (136-145); Total Protein 6.5 G/DL (6.4-8.3); Troponin I Only < 0.015 NG/ML (0.00-0.045)
[2018-04-16] MEDS ORDERED: ONDANSETRON 4 MG/2 ML VIAL IV PRN (15:02)
[2018-04-16] MEDS ORDERED: ACETAMINOPHEN 500 MG TABLET PO PRN (15:02)
[2018-04-17] MEDS ORDERED: ONDANSETRON 4 MG TABLET PO PRN (08:47)
[2018-04-17] MEDS ORDERED: POLYETHYLENE GLYCOL POWDER 17 GM PACK PO PRN (08:47)
[2018-04-17] MEDS ORDERED: PANTOPRAZOLE 40 MG TABLET PO PRN (08:47)
[2018-04-17] MEDS ORDERED: fentaNYL 25 MCG/HR PATCH TRANSDERM SCH (09:00)
[2018-04-17] MEDS: PANTOPRAZOLE 40 MG TABLET PO SCH (09:48)
[2018-04-17] MEDS: oxyCODONE/ACETAMINOPHEN 5-325 MG TABLET PO PRN ×3 (09:48→23:55)
[2018-04-17] MEDS: ASPIRIN EC 81 MG TABLET PO SCH (16:52)
[2018-04-17] MEDS ORDERED: TAMSULOSIN 0.4 MG CAPSULE PO SCH (19:00)
[2018-04-18 04:35] LABS: Basophils % 0.7 % (0.0-0.8); Eosinophils # 0.2 10*3/uL (0.0-0.87); Eosinophils % 3.9 % (0.00-10.9); Hematocrit 40.2 VOL% (42.0-52.0); Hemoglobin 13.4 GM/DL (14.0-18.0); Immature Granulocytes % 0.4 %; Immature Granulocytes Absolute 0.02 #; Lymphocytes # 0.6 10*3/uL (1.4-4.0); Lymphocytes % 10.8 % (21.2-54.2); Mean Corpuscular HGB Conc 33.3 GM/DL (32-36); Mean Corpuscular Hemoglobin 30 PG (27-34); Mean Corpuscular Volume 90.5 FL (87-102); Mean Platelet Volume 10.5 FL (9.6-12.0); Monocytes # 0.7 10*3/uL (0.11-0.8); Monocytes % 11.5 % (1.7-12.7); Neutrophils # 4.1 10*3/uL (1.4-7.4); Neutrophils % 72.7 % (38.7-73.9); Platelet Count 144 T/CUMM (130-400); Red Blood Count 4.44 MC/CUMM (3.8-5.5); Red Cell Distribution Width 13.9 % (9.3-17.3); White Blood Count 5.7 T/CUMM (4-12)
[2018-04-18 05:09] LABS: Calcium 8.6 MG/DL (8.5-10.1); Thyroid Stimulating Hormone 2.78 uIU/ml (0.358-3.74)
[2018-04-18] MEDS: ASPIRIN EC 81 MG TABLET PO SCH (08:38)
[2018-04-18] MEDS: PANTOPRAZOLE 40 MG TABLET PO SCH (08:38)
[2018-04-18] MEDS: oxyCODONE/ACETAMINOPHEN 5-325 MG TABLET PO PRN (08:45)
[2018-04-18 16:40] VITALS: BP 161/87
[2018-04-18] MEDS ORDERED: APIXABAN 5 MG TABLET PO SCH (21:00)
== END 2018-04-18 16:45 | disposition home or self-care (01) | DRG 65 ==
LOC: N.ED 11:53 → N.EDINP 15:01 → N.4E 16:20
PROVIDERS: ADMIT Family Medicine; ATTEND Family Medicine